=== PATIENT | female | born 1990 | race Caucasian/White ===

== ENCOUNTER 2022-06-16 16:35 | Emergency (ER) | payer MEDICAID, OTHER ==
[~2022-06-16] VITALS: Ht 167.6 cm; Wt 131.1 kg
[2022-06-16] MEDS ORDERED: KETOROLAC TROMETH 60MG/2ML VIAL IM ONE (17:00)
[2022-06-16] MEDS ORDERED: HYDR-4902 PO (18:20)
[2022-06-16] MEDS ORDERED: IBUP800T26 PO (18:20)
[2022-06-16 19:32] VITALS: BP 122/92
[2022-06-17] MEDS ORDERED: HYDR-4902 PO (01:23)
[2022-06-17] MEDS ORDERED: IBUP800T26 PO (01:23)
== END 2022-06-16 19:31 | disposition home or self-care (01) ==
LOC: ER 16:35
DX: S16.1XXA Strain of muscle, fascia and tendon at neck level, initial encounter (principal); V43.52XA Car driver injured in collision with other type car in traffic accident, initial encounter; Y93.89 Activity, other specified; Y92.89 Other specified places as the place of occurrence of the external cause; Y99.8 Other external cause status
CPT/HCPCS: 72040; 96372; 99283; J1885